=== PATIENT | male | born 1990 | race Caucasian/White ===

== ENCOUNTER 2018-10-30 19:10 | Emergency (ER) | payer MEDICAID, BC ==
[~2018-10-30] VITALS: Ht 162.6 cm; Wt 74.8 kg
[2018-10-30] MEDS ORDERED: LORazepam 2MG/ML-1ML VIAL IV ONE (19:30)
[2018-10-30] MEDS ORDERED: HALOPERIDOL LACTATE 5 MG/ML INJ VIAL IM ONE (20:15)
[2018-10-30] MEDS ORDERED: diphenhdrAMINE HCL 50 MG/1 ML VL IM ONE (20:15)
[2018-10-30] MEDS ORDERED: LORazepam 2MG/ML-1ML VIAL IM ONE (20:15)
[2018-10-30 22:59] LABS: Basophils # (auto) 0 uL; Basophils % (auto) 0.1 % (0.0-2.0); Eosinophils # (auto) 0 uL; Hematocrit 38.3 % (41.0-53.0); Hemoglobin 12.7 g/dL (13.5-17.5); Lymphocytes # (auto) 1.3 uL; Lymphocytes % (auto) 10.5 % (10.0-50.0); Mean Corpuscular Hemoglobin 28.7 pg (28.0-32.0); Mean Corpuscular Hgb Conc. 33.2 g/dL (32.0-36.0); Mean Corpuscular Volume 86.5 fL (80.0-100.0); Monocytes # (auto) 0.8 uL; Monocytes % (auto) 6.9 % (0.0-12.0); Neutrophils # (auto) 9.9 uL; Neutrophils % (auto) 82.5 % (37.0-80.0); Platelet Count (auto) 370 10^3/uL (140-450); Red Blood Cells 4.43 10^6/uL (4.5-5.90); Red Cell Distribution Width 13.9 % (11.8-14.3)
[2018-10-30] MEDS ORDERED: MIDAZOLAM HCL 5 MG/ML-1ML VIAL IM ONE (23:00)
[2018-10-30 23:10] LABS: Potassium 3.5 mmol/L (3.5-5.1)
[2018-10-30 23:14] LABS: Calcium 9.2 mg/dL (8.5-10.1)
[2018-10-30 23:17] LABS: BUN/Creatinine Ratio 9.9
[2018-10-30 23:20] LABS: Bilirubin, Total 0.4 mg/dL (0.2-1.0)
[2018-10-31] MEDS ORDERED: LIDOCAINE W/ EPINEPHRINE 2% INJ 20ML VIAL ID ONE (02:00)
[2018-10-31] MEDS ORDERED: MIDAZOLAM HCL 5 MG/ML-1ML VIAL IM ONE (02:00)
== END 2018-10-31 04:30 | disposition home or self-care (01) ==
LOC: EDBD 19:10 → ER 19:19
DX: S01.511A Laceration without foreign body of lip, initial encounter (principal); G40.89 Other seizures; W18.39XA Other fall on same level, initial encounter; Y93.89 Activity, other specified; Y92.89 Other specified places as the place of occurrence of the external cause; Y99.8 Other external cause status
CPT/HCPCS: 12011; 36415; 70450; 70486; 72125; 80053; 85025; 96372; 99284; J1200; J1630; J2060; J2250

== ENCOUNTER 2024-08-31 19:56 | Emergency (ER) | payer BC, MEDICAID ==
[~2024-08-31] VITALS: Ht 157.5 cm; Wt 60.0 kg
[2024-08-31] MEDS: LIDOCAINE W/ EPINEPHRINE 1.5 % INJ 5ML AMP IJ ONE (20:15)
--- NOTE | 2024-08-31 20:19 | ED.PDOC ---
HPI (NEURO) HPI Comments 34 year old male came to ER via EMS due to seizures. Patient picked up at assisted care facility. Does have history of seizures. Had a seizure episode at the center and another episode while being transferred at the ambulance. Patient currently post ictal at this time of care. Noted abrasions on patients chin from his fall 2 seizure. Chief Complaint: Seizure Time Seen by MD: 20:18 Reviewed Notes: Nurses Notes Information Source: Patient Mode of Arrival: Ambulatory Severity: Moderate Dizziness/Weakness Severity: Unable to do activities Headache Severity: Moderate Timing: Hours Duration: Intermittent Prehospital treatment: None Seizure Quality: Tonic-clonic Headache Quality: Throbbing, Aching Headache Location: Generalized Weakness Location: Generalized Numbness Location: Generalized Seizure Location: Generalized Onset: With light exertion Circumstances: Spontaneous Symptoms: Weakness Before: Normal During: LOC After: Confusion History of: Seizure Disorder Associated Signs and Symptoms: Altered Mental Status Past Medical History PAST MEDICAL HISTORY: Seizures Surgical History: Denies all surgeries Family History Family History: Reviewed,noncontributory to illness Social History Smoker: Non-Smoker Alcohol: Denies ETOH Use Drugs: Denies Drug Use Lives In: Assisted Care Unable to Obtain due to: Altered Mental Status, Other (patient is post ictal) Physical Exam General Appearance: No Apparent Distress, Normal HEENT: Normal ENT Inspection, Pharynx Normal, TMs Normal Neck: Full Range of Motion, Non-Tender, Normal, Normal Inspection Respiratory: Chest Non-Tender, Lungs Clear, No Accessory Muscle Use, No Respiratory Distress, Normal Breath Sounds Cardiovascular: No Edema, No JVD, No Murmur, No Gallop, Normal Peripheral Pulses, Regular Rate/Rhythm Breast Exam: Deferred Gastrointestinal: No Organomegaly, Non Tender, No Pulsatile Mass, Normal Bowel Sounds, Soft Genitalia: Deferred Pelvic: Deferred Rectal: Deferred Extremities: No calf tenderness, Normal capillary refill, Normal inspection, Normal range of motion, Non-tender, No pedal edema Musculoskeletal : Apperance: Normal Neurologic: Alert, 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 Was a procedure done?: No Differential Diagnosis (SZ) Seizure: Psychogenic Seizure, Hypoxemia, Idiopathic, Encephalopathy, Epilepsy- Break Through, Epilepsy-Status X-Ray, Labs, Meds, VS Vital Signs Date Time Temp Pulse Resp B/P (MAP) Pulse Ox O2 Delivery O2 Flow Rate FiO2 08/31/24 22:09 101 21 110/62 (78) 100 08/31/24 21:43 97.9 107 23 102/63 (76) 97 97.9 08/31/24 21:43 107 23 97 Room Air* 0 21 08/31/24 19:56 99.0 112 20 145/86 (105) 98 Lab Test 08/31/24 22:03 Range/Units POC Glucose 113 H 70-106 mg/dl Current Medications Medications (Trade) Dose Ordered Sig/Ortiz Route Start Time Stop Time Status Last Admin Diphtheria/ Tetanus/Acell Pertussis (Boostrix T-Dap) 0.5 ml ONCE ONCE IM 08/31/24 20:15 08/31/24 20:16 DC 08/31/24 22:05 Levetiracetam 100 ml @ 400 mls/hr ONCE ONCE IV 08/31/24 20:15 08/31/24 20:29 DC 08/31/24 20:45 Sodium Chloride 1,000 ml @ 1,000 mls/hr Q1H ONCE IV 08/31/24 20:15 08/31/24 21:14 DC 08/31/24 22:05 Lorazepam (Ativan Inj) 2 mg ONCE ONCE IM 08/31/24 20:30 08/31/24 20:31 DC 08/31/24 20:24 Time of 1ST Reevaluation: 20:11 Reevaluation 1ST: Unchanged Patient Education/Counseling: Diagnosis, Treatment, Other (patient post ictal) Family Education/Counseling: No Family Present Departure 1 Departure Time of Disposition: 22:33 (Patient accepted to [facility] has a transfer for [facility]. Patient accepted by Dr. SANDERS) Impression: Primary Impression: Subdural hematoma, acute Additional Impressions: Seizure Chin laceration Qualified Codes: S01.81XA - Laceration without foreign body of other part of head, initial encounter Disposition: 02 [facility]ORT TERM [facility]OSPITAL Condition: Critical Critical Care Note Critical Care Time?: Yes Critical care comment: Subdural hematoma Authorized and Performed by: Pravin Granado MD Total critical care time: Approximately 39 minutes Due to a high probability of clinically significant, life threatening deterioration, the patient required my highest level of preparedness to intervene emergently and I personally spent this critical care time directly and personally managing the patient. This critical care time included obtaining a history; examining the patient; pulse oximetry; ordering and review of studies; arranging urgent treatment with development of a management plan; evaluation of patient's response to treatment; frequent reassessment; and, discussions with other providers. This critical care time was performed to assess and manage the high probability of imminent, life-threatening deterioration that could result in multi-organ failure. It was exclusive of separately billable procedures and treating other patients and teaching time. Please see my other sections and the rest of the note for further information on patient assessment and treatment. Stability Stability form required: No Heart Score Heart Score: Heart Score Response (Comments) Value History N/A 0 EKG N/A 0 Age N/A 0 Risk Factors N/A 0 Troponin N/A 0 Total 0 I personally scribed for PRAVIN GRANADO MD ([email or web address]) on 08/31/24 at 20:19. Electronically submitted by Dony Pearl ([email or web address]). PRAVIN GRANADO MD Aug 31, 2024 20:19
[2024-08-31] MEDS: LORazepam 2MG/ML-1ML VIAL ONE (20:23)
[2024-08-31] MEDS: LORazepam 2MG/ML-1ML VIAL IM ONE (20:24)
[2024-08-31] MEDS: levETIRAcetam 1000 mg/100ml 100 ML IV ONE (20:45)
[2024-08-31 21:43] VITALS: PULSE 107; RESP 23; O2SAT 97
[2024-08-31] MEDS: TETANUS-DIPTH-ACEL PERTUSSIS 0.5ML SYR Tdap IM ONE (22:05)
[2024-08-31] MEDS: SODIUM CHLORIDE 0.9% 1,000 ML IV ONE (22:05)
--- NOTE | 2024-08-31 22:19 | DVH ---
CLINICAL HISTORY: fall TECHNIQUE: Helical imaging carried out from skull base to vertex without intravenous contrast. This e xam was performed according to our departmental dose optimization program. Up-to-date CT equipment an d radiation dose reduction techniques are utilized as appropriate. COMPARISON: None FINDINGS: Mild cerebral volume loss with concordant prominence of the subarachnoid spaces and ventricles. CSF p rominence of the midline posterior fossa. There is a a small subdural hematoma layering along the lef t tentorium cerebellum measuring 2.4 mm in thickness on series 450, image 74 There is no midline shift or mass effect. The chappell white matter interfaces are maintained. The basal cisterns are patent. The mastoid air cells are well-aerated. There is mild paranasal sinus mucosal thickening IMPRESSION: 1. Acute thin layering subdural hematoma along the left tentorium cerebellum. This measures 2.4 mm in thickness. 2. Mild cerebral volume loss greater than expected for patient age
[2024-08-31 22:58] LABS: Basophils # (auto) 0 10 ^3/uL (0-0.2); Basophils % (auto) 0.3 % (0.0-2.0); Eosinophils # (auto) 0 10 ^3/uL (0-0.8); Hematocrit 35.2 % (41.0-53.0); Hemoglobin 12.2 g/dL (13.5-17.5); Lymphocytes % (auto) 7.7 % (10.0-50.0); Mean Corpuscular Hemoglobin 30.9 pg (28.0-32.0); Mean Corpuscular Hgb Conc. 34.7 g/dL (32.0-36.0); Monocytes # (auto) 0.9 10 ^3/uL (0-1.3); Monocytes % (auto) 7.3 % (0.0-12.0); Neutrophils % (auto) 84.7 % (37.0-80.0); Nucleated Red Blood Cells % 0.1 %; Platelet Count (auto) 324 10^3/uL (140-450); Red Blood Cells 3.95 10^6/uL (4.5-5.90); Red Cell Distribution Width 12.7 % (11.8-14.3)
[2024-08-31 23:05] LABS: Chloride 105 mmol/L (98-107); Potassium 4.9 mmol/L (3.5-5.1); Sodium 142 mmol/L (136-145)
[2024-08-31 23:06] LABS: Anion Gap 16 (5-15); Carbon Dioxide 21 mmol/L (20-31)
[2024-08-31 23:07] LABS: Calcium 10.4 mg/dL (8.7-10.4)
[2024-08-31 23:11] LABS: BUN/Creatinine Ratio 10.1 (10.0-20.0); Blood Urea Nitrogen 16 mg/dL (9-23); Glucose 92 mg/dL (74-106); INR 1.06 (0.9-1.15); Partial Thromboplastin Time 22.7 SEC (24.5-34.5); Prothrombin Time 11.2 sec (9.3-11.8)
[2024-09-01 00:15] VITALS: BP 115/70; PULSE 106; RESP 11; TEMP 97.9; O2SAT 98
== END 2024-08-31 22:21 | disposition short-term general hospital (02) ==
LOC: ER 19:56 → EDBD 19:56 → ER 22:21
DX: S01.81XA Laceration without foreign body of other part of head, initial encounter (principal); S06.5XAA Traumatic subdural hemorrhage with loss of consciousness status unknown, initial encounter; R56.9 Unspecified convulsions; W18.39XA Other fall on same level, initial encounter; Y93.89 Activity, other specified; Y92.89 Other specified places as the place of occurrence of the external cause; Y99.8 Other external cause status
CPT/HCPCS: 36415; 70450; 80048; 82962; 85025; 85610; 85730; 90471; 90715; 96361; 96365; 96372; 99291; J1953; J2060; J7030

== ENCOUNTER 2025-06-24 22:24 | Emergency (ER) | payer MEDICAID ==
[~2025-06-24] VITALS: Ht 165.1 cm; Wt 42.0 kg
[2025-06-24 22:44] VITALS: PULSE 119; RESP 20; TEMP 97.8; O2SAT 95
--- NOTE | 2025-06-24 22:52 | ED.PDOC ---
HPI Comments 35 year old male presents to ER with complaints of laceration x 1 day. Patient is present with caregivers with PMH significant for seizures and autism/non- verbal reporting that patient sustained a mechanical trip and fall at 8 p.m. prior to arrival to ER and hit his head/face against cement and sustained lacerations to face at that time. Denies LOC and presents to ER with a 2 cm laceration noted to left supraorbital region and 1 cm superficial laceration noted to nasal bridge, in mild distress. Denies vomiting, seizure, use of blood thinners or any further symptoms/complaints Chief Complaint: Laceration Time Seen by MD: 22:36 Primary Care Provider: TERRI Reviewed Notes: Nurses Notes, Medications, Allergies Allergies: Coded Allergies: Lamotrigine (Verified Allergy, Unknown, 10/30/18) Home Meds Active Scripts Amoxicillin & Pot Clavulanate (Amoxicillin/Potassium Cla) 875 Mg Tab, 1 TAB PO BID for 7 Days, #14 TAB 0 Refills Prov:NINI LEWIS 06/24/25 Acetaminophen (Acetaminophen) 500 Mg Tab, 500 MG PO Q4HPRN, #30 TAB 0 Refills Prov:NINI LEWIS 06/24/25 Information Source: Mental Health Staff (Caregivers) Mode of Arrival: Ambulatory Complexity: Intermediate Last Tetanus: UTD Laceration Length (cm): 2 Past Medical History PAST MEDICAL HISTORY: Seizures Past Medical History (Other): Autism/non-verbal Surgical History: Denies all surgeries Family History Family History: Unknown Social History Smoker: Non-Smoker Alcohol: Denies ETOH Use Drugs: Denies Drug Use Lives In: Assisted Care Constitutional: denies: chills, diaphoresis, fatigue, fever, malaise, sweats, weakness, others EENTM: denies: blurred vision, double vision, ear bleeding, ear discharge, ear drainage, ear pain, ear ringing, eye pain, eye redness, hearing loss, mouth pain, mouth swelling, nasal discharge, nose bleeding, nose congestion, nose pain, photophobia, tearing, throat pain, throat swelling, voice changes, others Respiratory: denies: cough, hemoptysis, orthopnea, SOB at rest, shortness of breath, SOB with excertion, stridor, wheezing, others Cardiovascular: denies: chest pain, dizzy spells, diaphoresis, Dyspnea on exertion, edema, irregular heart beat, left arm pain, lightheadedness, palpitations, PND, syncope, others Gastrointestinal: denies: abdomen distended, abdominal pain, blood streaked bowels, constipated, diarrhea, dysphagia, difficulty swallowing, hematemesis, melena, nausea, poor appetite, poor fluid intake, rectal bleeding, rectal pain, vomiting, others Genitourinary: denies: burning, dysuria, flank pain, frequency, hematuria, incontinence, penile discharge, penile sore, pain, testicle pain, testicle swelling, urgency, others Neurological: reports: others (As stated in HPI) Musculoskeletal: denies: back pain, gout, joint pain, joint swelling, muscle pain, muscle stiffness, neck pain, others Integumetry: reports: others (As stated in HPI) Allergic/Immunocompromised: denies: Difficulty Healing, Frequent Infections, Hives, Itching, others Hematologic/Lymphatic: denies: anemia, blood clots, easy bleeding, easy bruising, swollen glands, others Endocrine: denies: excessive hunger, excessive sweating, excessive thirst, excessive urination, flushing, intolerance to cold, intolerance to heat, unexplained weight gain, unexplained weight loss, others Psychiatric: denies: anxiety, bipolar disorder, depression, hopeless, panic disorder, schizophrenia, sleepless, suicidal, others Physical Exam General Appearance: Mild Distress HEENT: PERRL/EOMI, Pharynx Normal, TMs Normal, Other (2 cm laceration noted to left supraorbital region and 1 cm superficial laceration noted to nasal bridge. No septal hematoma or nose bleeding noted. 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 Was a procedure done?: No Sedation Sedation?: No Laceration Repair : Location Left frontal scalp Length 2 cm Anesthetic: Lidocaine (1%), Without epi Laceration Repair Prep: Saline, Betadine, by Irrigation (without any signs of foreign body) Laceration Repair Wound Comple: epidermis/dermis repair Laceration Repair: Number of sutures (3 placed - patient tolerated well without complication), Size (5-0 monocryl), Nylon, Non-adherent gauze Informed consent obtained: Yes Risks, benefits, and alternati: Yes Differential diagnosis Generic Laceration: Fracture, Retained Foriegn Body, Neurovascular Injury X-Ray, Labs, Meds, VS Vital Signs Date Time Temp Pulse Resp B/P (MAP) Pulse Ox O2 Delivery O2 Flow Rate FiO2 06/24/25 23:24 96/59 (71) 06/24/25 22:44 Room Air* 0 21 06/24/25 22:44 97.8 119 20 95 97.8 06/24/25 22:25 97.8 119 20 86/41 95 97.8 Current Medications Medications (Trade) Dose Ordered Sig/Ortiz Route Start Time Stop Time Status Last Admin Lorazepam (Ativan Inj) 2 mg ONCE ONCE IM 06/24/25 22:45 06/24/25 22:46 DC 06/24/25 22:55 Ceftriaxone Sodium (Rocephin) 1,000 mg ONCE ONCE IM 06/25/25 00:00 06/25/25 00:01 DC 06/25/25 00:04 Lidocaine HCl (Xylocaine 1%) ONCE ONCE ID 06/25/25 00:00 06/25/25 00:01 DC 06/25/25 00:05 PATIENT: MICHELLE BAXTERT: [id number]: [id number] : 1990 LOC: ER ROOM / BED: / AGE / SEX: 35 / M ADM STATUS: REG ER SERVICE [id number] ORDERING PHYSICIAN: NINI LEWIS PROCEDURE(s): FAC2C - MAXILLOFACIAL WITHOUT REASON: facial injury ORDER NUMBER(s): [id number], ACCESSION NUMBER(s): [id number] HISTORY: facial injury TECHNIQUE: Nonenhanced axial images through the facial bones with coronal and sagittal MPR. Radiation Dose Information: CT Dose: CTDI volume is 66.6 mGy. Dose-length product is 2455.2 mGy*cm COMPARISON: CT HEAD WITHOUT CONTRAST on DOS: 06/24/25, CT HEAD WITHOUT CONTRAST on DOS: 08/31/24 FINDINGS: Evaluation is degraded by positioning. There are displaced acute left-sided nasal bone fractures with overlying soft tissue swelling. Probable acute nondisplaced right nasal bone fractures. Mildly displaced age-indeterminate though possibly acute fracture of the nasal septum. No definite nasal septal hematoma. Streak artifact referable to dental hardware partially obscures evaluation of the lower face. Multiple periapical lucencies are seen which may reflect dental caries. There is a left frontal scalp hematoma. Visualized intracranial structures are unremarkable. The orbits are unremarkable. IMPRESSION: 1. Mildly displaced acute nasal bone fractures with overlying soft tissue swelling. Mildly displaced age-indeterminate fracture of the nasal septum. 2. Additional findings as detailed. Radiation optimization: All CT scans at this facility use at least one of these dose optimization techniques: automated exposure control mA and/or kV adjustment per patient size (includes targeted exams where dose is matched to clinical indication) or iterative reconstruction. ATED BY: LATOSHA RAYMOND MD DICTATED DATE/TIME: 06/25/252340 SIGNED BY: LATOSHA RAYMOND MD SIGNED DATE/TIME: 06/25/25 0001 PATIENT: JAYLENE BAXTER ACCT: [id number] UNIT: [id number] : 1990 LOC: ER ROOM / BED: / AGE / SEX: 35 / M ADM STATUS: REG ER SERVICE [id number] ORDERING PHYSICIAN: NINI LEWIS PROCEDURE(s): HWOCT - HEAD WITHOUT CONTRAST REASON: head injury ORDER NUMBER(s): [id number], ACCESSION NUMBER(s): [id number] EXAM: CT HEAD WITHOUT CONTRAST INDICATION: head injury TECHNIQUE: CT of the head without intravenous contrast. Radiation Dose : 1. Head: CT Dose: CTDI volume is 66.6 mGy. Dose-length product is 2455.29 mGy*cm The dose indicators for CT are the volume Computed Tomography (CT) Dose Index (CTDIvol) and the Dose Length Product (DLP), and are measured in units of mGy a nd mGy-cm, respectively. These indicators are not patient dose, but values generated from the CT scanner acquisition factors. The report includes radiation exposure data for exposures received during this examination. COMPARISON: CT HEAD WITHOUT CONTRAST on DOS: 08/31/24 FINDINGS: There is no evidence of acute intracranial hemorrhage, extra-axial collection, mass effect, midline shift, herniation or hydrocephalus. Increased prominence of the ventricles, sulci and cisterns consistent with sequelae of atrophic cortical volume loss. Harsha cisterna magna. The chappell-white differentiation is intact. Moderate diffuse confluent periventricular and subcortical white matter hypoattenuation is nonspecific but may be related to small vessel ischemic disease. The visualized paranasal sinuses and mastoid air cells are clear. Mildly displaced left and nondisplaced right nasal bone fractures with overlying soft tissue swelling and subcutaneous emphysema. Left supraorbital scalp laceration and soft tissue swelling. IMPRESSION: 1. No CT evidence of acute intracranial abnormality. 2. Mildly displaced left and nondisplaced right nasal bone fractures with overlying soft tissue swelling and subcutaneous emphysema. 3. Left supraorbital scalp laceration and soft tissue swelling. 4. Chronic sequelae of microangiopathy and atrophic cortical volume loss. Radiation optimization: All CT scans at this facility use at least one of these dose optimization techniques: automated exposure control mA and/or kV adjustment per patient size (includes targeted exams where dose is matched to clinical indication) or iterative reconstruction. ATED BY: CECIL RAMIREZ MD DICTATED DATE/TIME: 06/24/252340 SIGNED BY: CECIL RAMIREZ MD SIGNED DATE/TIME: 06/24/25 234 CC: Ativan 2 mg IM ordered Rocephin 1 g IM ordered Wound cleaning performed at bedside Dermabond and Steri-Strips applied to superficial laceration of nose without complication CT head without contrast reviewed CT maxillofacial without contrast reviewed Advised on no nose blowing Patient in no distress prior to discharge Wound care/cleaning discussed and advised Advised to follow up with PCP and ENT in 1-2 days Patient's caregiver verbalized understanding and agreeable with current plan of care Advised to return to ER immediately if symptoms worsen Images Reviewed?: Images reviewed and evaluated by me Time of 1ST Reevaluation: 22:55 Reevaluation 1ST: N/A Patient Education/Counseling: Diagnosis, Treatment, Prognosis, Need For Follow Up Family Education/Counseling: Diagnosis, Treatment, Prognosis, Need For Follow Up Departure 1 Departure Time of Disposition: 23:50 Impression: Primary Impression: Nasal bone fractures Qualified Codes: S02.2XXA - Fracture of nasal bones, initial encounter for closed fracture Additional Impression: Laceration of face Qualified Codes: S01.81XA - Laceration without foreign body of other part of head, initial encounter Disposition: HOME / SELF CARE / HOMELESS Condition: Stable e-Prescriptions Amoxicillin & Pot Clavulanate (Amoxicillin/Potassium Cla) 875 Mg Tab 1 TAB PO BID for 7 Days, #14 TAB 0 Refills Prov: NINI LEWIS 06/24/25 Acetaminophen (Acetaminophen) 500 Mg Tab 500 MG PO Q4HPRN, #30 TAB 0 Refills Prov: NINI LEWIS 06/24/25 Discharged With: Embedded Linux Engineer Critical Care Note Critical Care Time?: No Stability Stability form required: No Heart Score Heart Score: Heart Score Response (Comments) Value History N/A 0 EKG N/A 0 Age N/A 0 Risk Factors N/A 0 Troponin N/A 0 Total 0 NINI LEWIS Jun 24, 2025 22:51
[2025-06-24] MEDS: LORazepam 2MG/ML-1ML VIAL IM ONE (22:55)
[2025-06-24 23:24] VITALS: BP 96/59
--- NOTE | 2025-06-24 23:44 | DVH ---
EXAM: CT HEAD WITHOUT CONTRAST INDICATION: head injury TECHNIQUE: CT of the head without intravenous contrast. Radiation Dose : 1. Head: CT Dose: CTDI volume is 66.6 mGy. Dose-length product is 2455.29 mGy*cm The dose indicators for CT are the volume Computed Tomography (CT) Dose Index (CTDIvol) and the Dose Length Product (DLP), and are measured in units of mGy and mGy-cm, respectively. These indicators are not patient dose, but values generated from the CT scanner acquisition factors. The report includes radiation exposure data for exposures received during this examination. COMPARISON: CT HEAD WITHOUT CONTRAST on DOS: 08/31/24 FINDINGS: There is no evidence of acute intracranial hemorrhage, extra-axial collection, mass effect, midline shift, herniation or hydrocephalus. Increased prominence of the ventricles, sulci and cisterns consistent with sequelae of atrophic cortical volume loss. Harsha cisterna magna. The chappell-white differentiation is intact. Moderate diffuse confluent periventricular and subcortical white matter hypoattenuation is nonspecific but may be related to small vessel ischemic disease. The visualized paranasal sinuses and mastoid air cells are clear. Mildly displaced left and nondisplaced right nasal bone fractures with overlying soft tissue swelling and subcutaneous emphysema. Left supraorbital scalp laceration and soft tissue swelling. IMPRESSION: 1. No CT evidence of acute intracranial abnormality. 2. Mildly displaced left and nondisplaced right nasal bone fractures with overlying soft tissue swelling and subcutaneous emphysema. 3. Left supraorbital scalp laceration and soft tissue swelling. 4. Chronic sequelae of microangiopathy and atrophic cortical volume loss. Radiation optimization: All CT scans at this facility use at least one of these dose optimization techniques: automated exposure control mA and/or kV adjustment per patient size (includes targeted exams where dose is matched to clinical indication) or iterative reconstruction.
[2025-06-24] MEDS ORDERED: ACET500T58 PO (23:51)
[2025-06-24] MEDS ORDERED: AMOX875T4 PO (23:51)
[2025-06-25] MEDS: cefTRIAXone SOD 1,000 MG VL IM ONE (00:04)
[2025-06-25] MEDS: LIDOCAINE 1% HCL (LOCAL ANESTH.) INJ 20ML MDV ID ONE (00:05)
--- NOTE | 2025-06-25 00:05 | DVH ---
HISTORY: facial injury TECHNIQUE: Nonenhanced axial images through the facial bones with coronal and sagittal MPR. Radiation Dose Information: CT Dose: CTDI volume is 66.6 mGy. Dose-length product is 2455.2 mGy*cm COMPARISON: CT HEAD WITHOUT CONTRAST on DOS: 06/24/25, CT HEAD WITHOUT CONTRAST on DOS: 08/31/24 FINDINGS: Evaluation is degraded by positioning. There are displaced acute left-sided nasal bone fractures with overlying soft tissue swelling. Probable acute nondisplaced right nasal bone fractures. Mildly displaced age-indeterminate though possibly acute fracture of the nasal septum. No definite nasal septal hematoma. Streak artifact referable to dental hardware partially obscures evaluation of the lower face. Multiple periapical lucencies are seen which may reflect dental caries. There is a left frontal scalp hematoma. Visualized intracranial structures are unremarkable. The orbits are unremarkable. IMPRESSION: 1. Mildly displaced acute nasal bone fractures with overlying soft tissue swelling. Mildly displaced age-indeterminate fracture of the nasal septum. 2. Additional findings as detailed. Radiation optimization: All CT scans at this facility use at least one of these dose optimization techniques: automated exposure control mA and/or kV adjustment per patient size (includes targeted exams where dose is matched to clinical indication) or iterative reconstruction.
== END 2025-06-25 00:24 | disposition home or self-care (01) ==
LOC: ER 22:24
DX: S02.2XXA Fracture of nasal bones, initial encounter for closed fracture (principal); S01.81XA Laceration without foreign body of other part of head, initial encounter; S01.01XA Laceration without foreign body of scalp, initial encounter; Z79.899 Other long term (current) drug therapy; X58.XXXA Exposure to other specified factors, initial encounter; Y93.89 Activity, other specified; Y92.89 Other specified places as the place of occurrence of the external cause; Y99.8 Other external cause status
CPT/HCPCS: 12001; 70450; 70486; 96372; 99285; A4649; J0696; J2003; J2060